=== PATIENT | female | born 1985 | race Caucasian/White ===

== ENCOUNTER 2022-11-26 20:24 | Emergency (ER) | payer OTHER ==
[~2022-11-26] VITALS: Ht 167.6 cm; Wt 63.5 kg
[2022-11-26 21:02] VITALS: BP 147/93; PULSE 103; RESP 20; TEMP 98
--- NOTE | 2022-11-26 21:10 | NUR ---
pt went to the lobby
[2022-11-26] MEDS ORDERED: DOCUSATE 100 MG/10 ML UDC PO ONE (22:15)
--- NOTE | 2022-11-26 22:15 | NUR ---
PT MEDICATED PER ORDERS GIVEN.
[2022-11-26 22:33] VITALS: BP 132/78; PULSE 71; RESP 20; TEMP 98
--- NOTE | 2022-11-26 22:33 | NUR ---
Patient discharged with v/s stable. Written and verbal after care instructions given and explained. Patient verbalized understanding. Ambulatory with steady gait. All questions addressed prior to discharge. Advised to follow up with PMD.
== END 2022-11-26 22:33 | disposition home or self-care (01) ==
LOC: MED 20:24
DX: H61.22 Impacted cerumen, left ear (principal)
CPT/HCPCS: 99282